=== PATIENT | female | born 1960 | race Two or more races ===

== ENCOUNTER 2022-04-22 05:00 | Day surgery (SDC) | payer OTHER ==
[~2022-04-22 05:00] MED LIST: DILTIAZEM ER120 M2 PO; FLOVENT HFA12 GM IH; LOSARTAN-HCTZ1 EAC1 PO; SINGULAIR10 MG PO; [UNRECOGNIZED DRUG - OTHER]
[2022-04-22] MEDS ORDERED: KETO10TA2 PO (08:12)
[2022-04-22] MEDS ORDERED: MIRALAX17 GM PO (08:12)
[2022-04-22] MEDS ORDERED: ULTRAM50 MG PO (08:12)
[2022-04-22] MEDS ORDERED: TYLENOL ARTHRI650 MG PO (08:12)
== END 2022-04-22 11:45 | disposition home or self-care (01) ==
LOC: CIR.AMB 05:00
PROVIDERS: ATTEND Surgery
DX: K42.0 Umbilical hernia with obstruction, without gangrene (principal); I10 Essential (primary) hypertension; Z20.822 Contact with and (suspected) exposure to COVID-19; Z86.16 Personal history of COVID-19; Z86.73 Personal history of transient ischemic attack (TIA), and cerebral infarction without residual deficits; Z88.0 Allergy status to penicillin
CPT/HCPCS: 49653; C1781